=== PATIENT | male | born 1980 | race Caucasian/White ===

== ENCOUNTER 2018-09-15 23:17 | Emergency (ER) | payer OTHER ==
[~2018-09-15] VITALS: Ht 188 cm; Wt 121.7 kg
[2018-09-15 23:25] VITALS: BP 154/87; PULSE 110; RESP 20; Ht 188 cm; Wt 121.7 kg
[2018-09-16] MEDS ORDERED: DIPHTH/TET/ACEL PERTUSS (ADULT) 0.5 ML VIAL IM* ONE (01:30)
[2018-09-16] MEDS ORDERED: IBUPROFEN 600 MG TAB PO ONE (04:30)
[2018-09-16] MEDS ORDERED: CEPH-443 PO (04:48)
[2018-09-16] MEDS ORDERED: ACET1TAB40 PO (04:48)
[2018-09-16] MEDS ORDERED: IBUP-1542 PO (04:48)
--- NOTE | 2018-09-16 04:50 | ERD ---
ER Documentation Chief Complaint Chief Complaint left arm pain, states accdidentally got puntured with cactus around 1900 HPI Patient is a 38-year-old male who presents the ER for concerns of left elbow pain which started around 7:00 PM. Patient states he was working well he when he tripped and had a cactus. Patient states he got 3 cactus needles in his left elbow however he "pulled out all 3 needles" immediately after. Since that time he had severe elbow pain. Patient rates his current elbow pain to be "20 out of 10." Patient denies any fevers or chills. Patient denies any previous fractures or dislocations. Patient is [id number]. ROS All systems reviewed and are negative except as per history of present illness. Medications Home Meds Active Scripts Cephalexin* (Keflex*) 500 Mg Capsule, 500 MG PO TID for 7 Days, CAP Prov:CUCA NOE-C 09/16/18 Acetaminophen with Codeine (Acetaminophen-Cod #3 Tablet) 1 Each Tablet, 1 TAB PO Q6H, #7 TAB Prov:CUCA NOE-C 09/16/18 Ibuprofen* (Motrin*) 600 Mg Tab, 600 MG PO Q6, #30 TAB Prov:CUCA NOE-C 09/16/18 Allergies Allergies: Coded Allergies: No Known Drug Allergies (Verified Allergy, Unknown, 09/15/18) PMhx/Soc Medical and Surgical Hx: pt denies Medical Hx, pt denies Surgical Hx Hx Alcohol Use: No Hx Substance Use: No Hx Tobacco Use: No Smoking Status: Never smoker FmHx Family History: No diabetes Physical Exam Vitals Vital Signs Date Temp Pulse Resp B/P (MAP) Pulse Ox O2 O2 Flow FiO2 Time Delivery Rate 09/15/18 98.2 110 20 154/87 100 23:25 (109) Physical Exam GENERAL: Well-developed, well-nourished male. Appears in no acute distress. HEAD: Normocephalic, atraumatic. EYES: Pupils are equally reactive bilaterally. EOMs grossly intact. No conjuncti gavino erythema. ENT: Moist mucous membranes. No uvula deviation. No kissing tonsils. NECK: Supple. No meningismus. Normal range of motion of the neck. LUNG: Clear to auscultation bilaterally. No rhonchi, wheezing, rales or coarse breath sounds. HEART: Regular rate and rhythm. No murmurs, rubs or gallops. EXTREMITIES: Equal pulses bilaterally. No peripheral clubbing, cyanosis or ed marty. No unilateral leg swelling. NEUROLOGIC: Alert and oriented. Moving all four extremities without any difficulty. Normal speech. Steady gait. SKIN: Normal color. Warm and dry. No rashes or lesions. LUE: No obvious deformity, swelling, redness or bleeding. No warmth. No puncture wounds noted. Skin intact. Normal passive range of motion however decreased active range of motion. Neurovascularly intact. (Able to give thumbs up, make an ok sign, cross digits 2 and 3, thumb to pinky opposition. 2+ RP.) No snuffbox tenderness. Results 24 hrs Current Medications Medications Dose Sig/Gloria Start Time Status Last (Trade) Ordered Route PRN Stop Time Admin Dose Reason Admin Diphtheria/ 0.5 ml ONCE ONCE 09/16/18 DC 09/16/18 Tetanus/Acell IM* 01:30 09/16/18 01:35 Pertussis 01:31 (Adacel) Ibuprofen 600 mg ONCE ONCE 09/16/18 DC 09/16/18 (Motrin) PO 04:30 09/16/18 04:46 04:31 Procedures/MDM ED COURSE: The patient was stable throughout ED course. I kept the patient and/or family informed of laboratory and diagnostic imaging results throughout the ED course. DIAGNOSTIC IMAGING: Read by radiologist. DIAGNOSTIC IMAGING REPORT Patient: JENNIFER JAMES : 1980 Age: 38 Sex: M MR #: [id number] DOS: 09/16/18 0124 Ordering MD: CUCA NOE PA-C Location: [facility] Room/Bed: PROCEDURE: Left elbow series CLINICAL INDICATION: Foreign body. Pain. TECHNIQUE: AP, lateral and oblique images of the left elbow were obtained. COMPARISON: None FINDINGS: No evidence of acute fracture or dislocation. Bony mineralization is normal. No focal bony blastic or lytic lesions. Small spur involving the posterior proximal left ulna. No evidence of a left elbow joint effusion. No radiodense foreign body. IMPRESSION: No evidence acute fracture dislocation joint effusion or radiodense foreign body. RPTAT:AAJJ Physician Maria Date Time Electronically viewed and signed by Physician Maria on 09/16/2018 04:34 BM/ MEDICAL DECISION MAKING: This is a 38-year-old male who presents the ER for concerns of left elbow pain after hitting a cactus and getting cactus needles stuck in his arm. Vital signs were reviewed. Patient was afebrile. Per patient's history, he removed all 3 needles however on exam I do not see any puncture wounds. X-ray imaging was obtained per patient's request. X-ray imaging was negative for acute fracture dislocation. No foreign bodies were visualized. No joint effusions were noted. Patient was given pain medication. Patient reported improvement in pain. Patient will be discharged home with prescription for ibuprofen and Tylenol 3. Patient advised not to take Tylenol No. 3 [address] or operating any machinery. Patient is agreeable to this plan. At this time, the patient presentation is most consistent with elbow pain. Low suspicion for fracture dislocation. Patient had no redness, swelling, warmth to the affected joint. Patient had no fevers or chills. Low suspicion for septic joint. Low suspicion for compartment syndrome. Unable to rule out any ligament or tendon injuries. Patient was nontoxic, [id number]-[id number] prior to discharge. PRESCRIPTIONS: Ibuprofen, Tylenol DISCHARGE: At this time, patient is stable for discharge and outpatient management. RICE therapy and ROM exercises were advised to avoid stiffness. I have instructed the patient to follow-up with his/her primary care physician in 1-2 days. I have discussed with the patient the possibility of needing to see an allergy specialist for further workup and imaging if the pain persists. I have instructed the patient to promptly return to the ER for any new or worsening symptoms including increased pain, swelling, redness, warmth or fever. The patient and/or family expressed understanding of and agreement with this plan. All questions were answered. Home care instructions were provided. Disclaimer: Inadvertent spelling and grammatical errors are likely due to EHR/dictation software use and do not reflect on the overall quality of patient care. Also, please note that the electronic time recorded on this note does not necessarily reflect the actual time of the patient encounter. Departure Diagnosis: Primary Impression: Elbow pain Laterality: left Qualified Codes: M25.522 - Pain in left elbow Condition: Stable Patient Instructions: Contusion, Elbow Referrals: COMMUNITY CLINICS YOU HAVE RECEIVED A MEDICAL SCREENING EXAM AND THE RESULTS INDICATE THAT YOU DO NOT HAVE A CONDITION THAT REQUIRES URGENT TREATMENT IN THE EMERGENCY DEPARTMENT. FURTHER EVALUATION AND TREATMENT OF YOUR CONDITION CAN WAIT UNTIL YOU ARE SEEN IN YOUR DOCTORS OFFICE WITHIN THE NEXT 1-2 DAYS. IT IS YOUR RESPONSIBILITY TO MAKE AN APPOINTMENT FOR FOLOW-UP CARE. IF YOU HAVE A PRIMARY DOCTOR --you should call your primary doctor and schedule an appointment IF YOU DO NOT HAVE A PRIMARY DOCTOR YOU CAN CALL OUR PHYSICIAN REFERRAL HOTLINE AT IF YOU CAN NOT AFFORD TO SEE A PHYSICIAN YOU CAN CHOSE FROM THE FOLLOWING [facility] [address] [facility]. [facility] [address] [facility]. [facility] [address] [facility] [facility] [address] [facility] [address] [facility]. [facility] [address] [facility]. [facility] YOU HAVE RECEIVED A MEDICAL SCREENING EXAM AND THE RESULTS INDICATE THAT YOU DO NOT HAVE A CONDITION THAT REQUIRES URGENT TREATMENT IN THE EMERGENCY DEPARTMENT. FURTHER EVALUATION AND TREATMENT OF YOUR CONDITION CAN WAIT UNTIL YOU ARE SEEN IN YOUR DOCTORS OFFICE WITHIN THE NEXT 1-2 DAYS. IT IS YOUR RESPONSIBILITY TO MAKE AN APPOINTMENT FOR FOLOW-UP CARE. IF YOU HAVE A PRIMARY DOCTOR --you should call your primary doctor and schedule and appointment IF YOU DO NOT HAVE A PRIMARY DOCTOR YOU CAN CALL OUR PHYSICIAN REFERRAL HOTLINE AT . IF YOU CAN NOT AFFORD TO SEE A PHYSICIAN YOU CAN CHOSE FROM THE FOLLOWING [facility] INSTITUTIONS: [facility] [address] [place] [address] [facility] [address] [place] [address] [facility] + [address] [address] Additional Instructions: Llame al doctor MAANA y keena norman GIUSEPPE PARA DENTRO DE 1-2 WILCOX.Dgale a la secretaria que nosotros le instruimos hacer esta giuseppe.Avise o llame si jewell condicin se empeora antes de la giuseppe. Regresa aqui si peor o no mejor. CUCA NOE PA-C September 16, 2018 04:50
== END 2018-09-16 04:58 | disposition home or self-care (01) ==
LOC: FTE 23:17
DX: M25.522 Pain in left elbow (principal); Z23 Encounter for immunization
CPT/HCPCS: 73080; 90471; 90715; Z7502; Z7610